=== PATIENT | female | born 1970 | race Hispanic/Latino ===

== ENCOUNTER 2018-07-12 13:19 | Emergency (ER) | payer SELFPAY ==
[~2018-07-12] VITALS: Ht 154.9 cm; Wt 64.4 kg
[2018-07-12] MEDS ORDERED: KETOROLAC TROMETHAMINE 60 MG/2 ML VIAL IM ONE (13:30)
[2018-07-12] MEDS ORDERED: DEXAMETHASONE SOD PHOS 10 MG/1 ML VIAL IM ONE (13:30)
[2018-07-12] MEDS ORDERED: CYCLOBENZAPRINE HCL 10 MG TAB PO ONE (13:30)
== END 2018-07-12 14:32 | disposition home or self-care (01) ==
LOC: ER 13:19
DX: G44.219 Episodic tension-type headache, not intractable (principal)
CPT/HCPCS: 99283; J1100; J1885

== ENCOUNTER 2018-09-13 20:40 | Emergency (ER) | payer SELFPAY ==
[~2018-09-13] VITALS: Ht 154.9 cm; Wt 63.0 kg
== END 2018-09-13 21:25 | disposition left against medical advice (07) ==
LOC: ER 20:40
DX: R05 Cough (principal)